=== PATIENT | male | born 2000 | race Caucasian/White ===

== ENCOUNTER 2019-12-25 17:52 | Emergency (ER) | payer OTHER, SELFPAY ==
[2019-12-25 19:10] VITALS: BP 186/100; PULSE 82; RESP 18; TEMP 36.8; O2SAT 97
--- NOTE | 2019-12-25 19:26 | ED.GENADULT ---
HPI - General Adult General Chief complaint: Wound/Laceration Stated complaint: left first finger lac Time Seen by Provider: 12/25/19 18:58 History of Present Illness HPI narrative: Patient is a 19-year-old male who presents ER with laceration to his left index finger. He was using knives at his work when he accidentally cut himself. No numbness or tingling. Approximately 1 cm at the distal tip of the finger. No nail involvement. Tetanus up-to-date. Related Data Allergies Allergy/AdvReac Type Severity Reaction Status Date / Time No Known Allergies Allergy Verified 12/25/19 19:16 Review of Systems Musculoskeletal: Musculoskeletal: Denies arthralgias and Denies joint swelling Integumentary/Breasts: Comments: Finger laceration Neurologic: Denies focal weakness and Denies numbness PMFSH Past Medical History Medical History (Updated 12/25/19 @ 20:16 by Sanjay Ruiz MD) Asthma Surgical History Surgical History (Updated 12/25/19 @ 19:27 by Sanjay Ruiz MD) No significant past surgical history Exam Narrative: Exam Narrative: GENERAL: Well-appearing, well-nourished, and in no acute distress. HEAD: Normocephalic, atraumatic. EXTREMITIES: Full range of motion normal strength of the leftt index finger. Distal fingertip laceration 1 cm superficial. SKIN: Warm, dry, no rash. NEURO: No focal deficits. Alert and oriented x3. PSYCH: Normal mood and affect. Course Vital Signs Vital signs: Vital Signs Temperature 98.2 F 12/25/19 19:10 Pulse Rate 82 12/25/19 19:10 Respiratory Rate 18 12/25/19 19:10 Blood Pressure 186/100 H 12/25/19 19:10 Pulse Oximetry 97 12/25/19 19:10 Temperature 98.2 F 12/25/19 19:10 Pulse Rate 82 12/25/19 19:10 Respiratory Rate 18 12/25/19 19:10 Blood Pressure 186/100 H 12/25/19 19:10 Pulse Oximetry 97 12/25/19 19:10 Procedures Laceration Laceration 1: Date: 12/25/19 Time: 19:50 Site: other (finger) Side (If applicable): left Size (cm): 1 Description: linear Depth: simple, single layer Pre-repair: irrigated ====== Skin Level ====== Skin layer closed with: dermabond and steri strips ====== Subcutaneous Layer ====== ====== Muscle Layer ====== ====== Tendon Layer ====== Orthopedic Splinting/Casting Injury #1: Splinting/Casting Date: 12/25/19 Splinting/Casting Time: 20:14 Side: left Upper Extremity Injury Location: finger Upper Extremity Immobilizer: aluminum form splint Pre-Procedure Neuro Vascular Exam: normal Post-Procedure Neuro Vascular Exam: normal Medical Decision Making Vital Signs Vital Signs: Vital Signs Temperature 98.2 F 12/25/19 19:10 Pulse Rate 82 12/25/19 19:10 Respiratory Rate 18 12/25/19 19:10 Blood Pressure 186/100 H 12/25/19 19:10 Pulse Oximetry 97 12/25/19 19:10 Temperature 98.2 F 12/25/19 19:10 Pulse Rate 82 12/25/19 19:10 Respiratory Rate 18 12/25/19 19:10 Blood Pressure 186/100 H 12/25/19 19:10 Pulse Oximetry 97 12/25/19 19:10 Discharge Plan Discharge Clinical Impression: Laceration Patient Disposition: Home, Self-Care Condition: Stable Instructions: Skin Adhesive Care (ED), Steristrips (ED) Additional Instructions: Return the ER if you have chest pain or shortness of breath, your finger is red and hot and draining pus, or you have additional concerns. Follow-up/Referrals: Kamlesh,Gabe Meraz MD [Primary Care Provider] - 1 Week
[2019-12-25 20:30] VITALS: BP 134/85; PULSE 78; RESP 18; O2SAT 99
== END 2019-12-25 20:30 | disposition home or self-care (01) ==
PROVIDERS: Emergency Provider Emergency Medicine; PCP Internal Medicine
DX: S61.211A Laceration without foreign body of left index finger without damage to nail, initial encounter (principal); J45.909 Unspecified asthma, uncomplicated; W26.0XXA Contact with knife, initial encounter
CPT/HCPCS: 12001; 99282